=== PATIENT | male | born 1950 | race Caucasian/White ===

== ENCOUNTER 2017-07-20 10:34 | Day surgery (SDC) | payer MEDICARE, OTHER ==
[~2017-07-20] VITALS: Ht 165.1 cm; Wt 50.4 kg
[~2017-07-20 10:34] MED LIST: ALBU90I; ALBU90OI INH; ALBU90OI6 INH; ALPR.5; ANTIDEPRESSANT; ASCO500 PO; ASPI81CH PO; ASPI81EC; ASPI81EC PO; ATOR20 PO; AZIT250 PO; AZIT500 PO; BENZ100A PO; BUDE10.22 IH; BUDE6HFA PO; Budeprion Sr150 MG; CALCNI; CARI350; CARI350 PO; CHLO25 PO; CLON.1 PO; CLON.2 PO; CYCL10; CYCL10 PO; DIAZ10; DIAZ10 PO; DIAZ2; DIAZ5; DIAZ5 PO; Depo-Testos200 MG/ML IM; ERGO400; ERGO50000 PO; ESCI10; ESCI10 PO; ESCI20; ESCI20 PO; ESOM20; ESOM20 PO; FENT25TP; FENT50TP; GABA100 PO; GABA600 PO; HYDACE10B; HYDACE5; Ipratr-Albuterol3 ML IH; LANS30EC PO; LAVAP17G PO; LEVO750 PO; MELA3; MELA3 SL; META800 PO; METH10 PO; METPRE4DP PO; MORP30 PO; MORP30ER PO; NAPR500 PO; NAPR550 PO; OXYACE10; OXYACE5T PO; OXYC20ER; OXYC30 PO; OXYC30ER PO; OXYC40ER; OXYC40ER PO; OXYC5 PO; OXYC80ER PO; Oxycodone HCl20 M1 PO; PANT40 PO; PRED10 PO; PROM25 PO; Periogard473 ML MM; Prednisone20 MG PO; Prinivil10 MG PO; QVAR; RABE20; ROFL500T; RXMETA800 PO; RXOXYACE PO; RXTRAM50 PO; Roxicodone5 MG PO; SOMA350 MG PO; SUBOXONE 8 MG-1 EACH SL; TAMS.4ER; TAMS.4ER PO; TERI750; TRAM50 PO; TRAZ100 PO; TRAZ50; TRAZ50 PO; TUDORZA PRESS400 MCG; TUDORZA PRESS400 MCG IH; VARE1 PO; ZOLP12.5; ZOLP5 PO; [UNRECOGNIZED DRUG - OTHER]; [UNRECOGNIZED DRUG - OTHER] PO; [UNRECOGNIZED DRUG - REMARK]
[2017-07-20] MEDS ORDERED: DIAZ5 PO (10:53)
[2017-07-20] MEDS ORDERED: MORP30ER PO (10:53)
== END 2017-07-20 12:08 | disposition home or self-care (01) ==
LOC: ORSCSDS 10:34
PROVIDERS: Internal Medicine Gastroenterology
PROC: 0DJD8ZZ Inspection of Lower Intestinal Tract, Via Natural or Artificial Opening Endoscopic (ICD-10-PCS; principal; 2017-07-20 11:45)
DX: Z86.010 Personal history of colon polyps (principal); D12.2 Benign neoplasm of ascending colon; D12.3 Benign neoplasm of transverse colon; K74.69 Other cirrhosis of liver; R06.00 Dyspnea, unspecified; B19.20 Unspecified viral hepatitis C without hepatic coma; F32.9 Major depressive disorder, single episode, unspecified; J44.9 Chronic obstructive pulmonary disease, unspecified; I25.2 Old myocardial infarction; E16.2 Hypoglycemia, unspecified; Z87.891 Personal history of nicotine dependence; Z79.899 Other long term (current) drug therapy
CPT/HCPCS: 88305; J7120

== ENCOUNTER 2017-08-09 13:07 | Day surgery (SDC) | payer MEDICARE, OTHER ==
[~2017-08-09] VITALS: Ht 165.1 cm; Wt 49.9 kg
== END 2017-08-09 15:21 | disposition home or self-care (01) ==
LOC: ORSCSDS 13:07
PROVIDERS: Internal Medicine Gastroenterology
PROC: 0DJ08ZZ Inspection of Upper Intestinal Tract, Via Natural or Artificial Opening Endoscopic (ICD-10-PCS; principal; 2017-08-09 14:30)
DX: R10.13 Epigastric pain (principal); K74.60 Unspecified cirrhosis of liver; B19.20 Unspecified viral hepatitis C without hepatic coma; J44.9 Chronic obstructive pulmonary disease, unspecified; Z99.81 Dependence on supplemental oxygen; G47.33 Obstructive sleep apnea (adult) (pediatric); I25.2 Old myocardial infarction; K21.9 Gastro-esophageal reflux disease without esophagitis; Z79.899 Other long term (current) drug therapy; F41.8 Other specified anxiety disorders
CPT/HCPCS: J7120

== ENCOUNTER 2018-07-30 18:44 | Emergency (ER) | payer MEDICARE, OTHER ==
[~2018-07-30] VITALS: Ht 165.1 cm; Wt 83.9 kg
[2018-07-30] MEDS ORDERED: CEPH500 PO (20:29)
== END 2018-07-30 20:33 | disposition home or self-care (01) ==
LOC: ER 18:44
DX: L03.032 Cellulitis of left toe (principal); L60.0 Ingrowing nail; J44.9 Chronic obstructive pulmonary disease, unspecified; M54.2 Cervicalgia; M54.9 Dorsalgia, unspecified; G89.29 Other chronic pain; M81.0 Age-related osteoporosis without current pathological fracture; Z79.82 Long term (current) use of aspirin; Z79.899 Other long term (current) drug therapy; Z87.891 Personal history of nicotine dependence
CPT/HCPCS: 73660; 99283-25

== ENCOUNTER 2018-10-11 19:24 | Emergency (ER) | payer MEDICARE, OTHER ==
[~2018-10-11] VITALS: Ht 162.6 cm; Wt 56.7 kg
[~2018-10-11 19:24] MED LIST changes: +CEPH500 PO; +CHOL10002; -ERGO400
[2018-10-11] MEDS ORDERED: Norco 5-325 Ta1 EACH PO ×2 (20:27)
[2018-11-01] MEDS ORDERED: COMBIVENT RESPIM4 GM INH (11:41)
[2018-11-01] MEDS ORDERED: ZOLP10 PO (11:41)
[2018-11-01] MEDS ORDERED: TRAZ100 PO (11:42)
[2018-11-01] MEDS ORDERED: TRELEGY ELLIPT1 EACH INH (11:42)
== END 2018-10-11 21:32 | disposition home or self-care (01) ==
LOC: ER 19:24
DX: S42.301A Unspecified fracture of shaft of humerus, right arm, initial encounter for closed fracture (principal); J44.9 Chronic obstructive pulmonary disease, unspecified; M54.2 Cervicalgia; G89.29 Other chronic pain; M81.0 Age-related osteoporosis without current pathological fracture; Z87.891 Personal history of nicotine dependence; W19.XXXA Unspecified fall, initial encounter
CPT/HCPCS: 29105; 73060; 73110; 96374-59; 96376-59; 99283-25; A9270; J1170

== ENCOUNTER 2019-01-27 14:32 | Emergency (ER) | payer MEDICARE, OTHER ==
[~2019-01-27] VITALS: Ht 162.6 cm; Wt 59.0 kg
[~2019-01-27 14:32] MED LIST changes: +COMBIVENT RESPIM4 GM INH; +Norco 5-325 Ta1 EACH PO; +TRELEGY ELLIPT1 EACH INH; +ZOLP10 PO
[2019-01-27 15:02] LABS: BASOPHILS ABSOLUTE AUTO 0.02 K/mm3 (0.00-0.23); BASOPHILS PERCENT AUTO 0 % (0-2); EOSINOPHILS ABSOLUTE AUTO 0.02 K/mm3 (0.00-0.68); EOSINOPHILS PERCENT AUTO 0 % (0-6); Hematocrit 41.5 % (37.0-53.0); Hemoglobin 14.3 g/dL (13.5-17.5); IMMATURE GRAN ABSOLUTE AUTO 0.04 K/mm3 (0.00-0.10); IMMATURE GRAN PERCENT AUTO 1 % (0-1); LYMPHOCYTES ABSOLUTE AUTO 0.89 K/mm3 (0.84-5.20); LYMPHOCYTES PERCENT AUTO 13 % (21-46); MONOCYTES ABSOLUTE AUTO 0.51 K/mm3 (0.16-1.47); MONOCYTES PERCENT AUTO 7 % (4-13); Mean Corpuscular HGB 29.5 pg (26.0-34.0); Mean Corpuscular HGB Conc 34.5 g/dL (31.5-36.5); Mean Corpuscular Volume 86 fL (80-100); Mean Platelet Volume 9.1 fL (9.1-12.4); NEUTROPHILS PERCENT AUTO 79 % (41-73); Platelet Count 180 K/mm3 (150-400); RDW Coefficient Variation 12.3 % (11.7-14.2); RDW Standard Deviation 38.5 fL (35.1-46.3); Red Blood Cell Count 4.85 M/mm3 (4.30-5.90); White Blood Cell Count 6.88 K/mm3 (4.00-11.30)
[2019-01-27 15:23] LABS: Alanine Aminotransfer (ALT/SGP 23 U/L (12-78); Albumin/Globulin Ratio 1.2 (0.8-1.8); Alk Phos 79 U/L (50-136); Anion Gap 5 mmol/L (6-16); Aspartate Aminotrans (AST/SGOT 22 U/L (12-37); Bilirubin, Total 0.7 mg/dL (0.1-1.0); Blood Urea Nitrogen 10 mg/dL (8-24); Bun/Creatinine Ratio 16.3 (12.0-20.0); CO2, Blood 27 mmol/L (21-32); Calcium, Blood 9.2 mg/dL (8.5-10.1); Chloride, Blood 100 mmol/L (98-108); Creatinine, Blood 0.61 mg/dL (0.60-1.20); Globulin, Blood 3.2 g/dL (2.2-4.0); Glomerular Filtration Rate >60 (60-); Glucose, Blood 126 mg/dL (70-99); Potassium, Blood 3.2 mmol/L (3.5-5.5); Sodium, Blood 132 mmol/L (136-145); Total Protein, Blood 7.2 g/dL (6.4-8.2)
[2019-01-27 16:42] LABS: Source, Urine Clean Catch
[2019-01-27] MEDS ORDERED: ONDA4ODT MM (16:44)
[2019-01-27] MEDS ORDERED: PEPCID40 MG PO (16:44)
[2019-01-27 17:03] LABS: Bilirubin, Urine Neg (Neg); Blood, Urine Neg (Neg); Glucose Qualitative, Urine Neg (Neg); Ketones, Urine 1+ (Neg); Leukocyte Esterase, Urine 1+ (Neg); Nitrite, Urine Neg (Neg); Protein, Urine Neg (Neg); Specific Gravity, Urine 1.015 (1.003-1.022); Urobilinogen, Urine NORM (Normal)
[2019-01-27 17:09] LABS: Appearance, Urine Clear (Clear); Color, Urine Yellow (P-Yellow)
[2019-01-27 17:10] LABS: Bacteria Mod /hpf; Mucus Light (0-Heavy); Red Blood Cells, Urine Not Seen /hpf (0-2); Squamous Epithelial Cells Rare /hpf (Few); White Blood Cells, Urine 0-2 /hpf (0-5)
== END 2019-01-27 17:26 | disposition home or self-care (01) ==
LOC: ER 14:32
PROVIDERS: Emergency Medicine
DX: R10.9 Unspecified abdominal pain (principal); R11.2 Nausea with vomiting, unspecified; F11.23 Opioid dependence with withdrawal; J44.9 Chronic obstructive pulmonary disease, unspecified; Z87.01 Personal history of pneumonia (recurrent); Z87.891 Personal history of nicotine dependence; Z91.048 Other nonmedicinal substance allergy status; Z79.899 Other long term (current) drug therapy; Z79.82 Long term (current) use of aspirin
CPT/HCPCS: 80053; 81001; 83690; 85025; 87086; 96361; 96374; 96375; 99284-25; J1200; J1630; J2405; J2550; J7030

== ENCOUNTER 2019-03-15 12:06 | Day surgery (SDC) | payer MEDICARE, OTHER ==
[~2019-03-15] VITALS: Ht 165.1 cm; Wt 55.2 kg
[~2019-03-15 12:06] MED LIST changes: +ONDA4ODT MM; +PEPCID40 MG PO
== END 2019-03-15 13:58 | disposition home or self-care (01) ==
LOC: ORSCSDS 12:06
PROVIDERS: Internal Medicine Gastroenterology
PROC: 0DJ08ZZ Inspection of Upper Intestinal Tract, Via Natural or Artificial Opening Endoscopic (ICD-10-PCS; principal; 2019-03-15 14:00)
DX: R10.13 Epigastric pain (principal); K74.60 Unspecified cirrhosis of liver; F41.8 Other specified anxiety disorders; J44.9 Chronic obstructive pulmonary disease, unspecified; B19.20 Unspecified viral hepatitis C without hepatic coma; Z99.81 Dependence on supplemental oxygen; I25.2 Old myocardial infarction; Z86.19 Personal history of other infectious and parasitic diseases; Z87.891 Personal history of nicotine dependence; Z79.82 Long term (current) use of aspirin; Z79.899 Other long term (current) drug therapy
CPT/HCPCS: J2704; J7120

== ENCOUNTER 2019-06-25 06:23 | Day surgery (SDC) | payer MEDICARE ==
[~2019-06-25] VITALS: Ht 162.6 cm; Wt 58.5 kg
[~2019-06-25 06:23] MED LIST changes: +AMBIEN10 MG PO; +BUPR150T2 PO; +Duoneb 2.5-0.5 M3 ML INH; +ROFL500T PO
== END 2019-06-25 08:40 | disposition home or self-care (01) ==
LOC: ORSCSDS 06:23
PROVIDERS: Orthopaedic Surgery
PROC: 01N50ZZ Release Median Nerve, Open Approach (ICD-10-PCS; principal; 2019-06-25 07:30)
DX: G56.01 Carpal tunnel syndrome, right upper limb (principal); I25.2 Old myocardial infarction; J44.9 Chronic obstructive pulmonary disease, unspecified; Z87.891 Personal history of nicotine dependence; Z79.899 Other long term (current) drug therapy
CPT/HCPCS: J0690; J2250; J2704; J3010; J7120